=== PATIENT | male | born 1960 | race Caucasian/White ===

== ENCOUNTER → 2016-05-05 | Outpatient (CLI) | payer OTHER ==
[2016-05-05 11:36] LABS: ESTIMATED AVERAGE GLUCOSE 143 mg/dl; HA1C FLAG Normal (Normal)
[2016-05-05 11:37] LABS: CHOLESTEROL/HDL RATIO 3.3; THYROID STIMULATING HORMONE 1.32 uIu/ml (0.300-4.500)
== END | disposition home or self-care (01) ==
LOC: C.LABBC 07:48
PROVIDERS: ATTEND Family Medicine
DX: E11.9 Type 2 diabetes mellitus without complications (principal); R74.0 Nonspecific elevation of levels of transaminase and lactic acid dehydrogenase [LDH]; E78.5 Hyperlipidemia, unspecified; Z11.59 Encounter for screening for other viral diseases

== ENCOUNTER → 2016-09-10 | Outpatient (CLI) | payer OTHER ==
[2016-09-10 17:04] LABS: ALT/SGPT 35 U/L (12-78); BLOOD UREA NITROGEN 15 mg/dl (7-18); BUN/CREATININE RATIO 12.6 (10-20); CALCIUM 9.2 mg/dl (8.5-10.1); CARBON DIOXIDE 26 mmol/L (21-32); CHLORIDE 103 mmol/L (98-107); GLUCOSE 142 mg/dl (70-99); SODIUM 138 mmol/L (136-145)
[2016-09-10 17:07] LABS: ALB/GLOB RATIO 1.1 (0.9-2); ALKALINE PHOSPHATASE 49 U/L (45-117); AST/SGOT 28 U/L (15-37)
[2016-09-11 06:28] LABS: ESTIMATED AVERAGE GLUCOSE 131 mg/dl; HA1C FLAG Normal (Normal)
== END | disposition home or self-care (01) ==
LOC: C.LABBC 15:16
PROVIDERS: ATTEND Internal Medicine
DX: E78.5 Hyperlipidemia, unspecified (principal); E11.9 Type 2 diabetes mellitus without complications; E55.9 Vitamin D deficiency, unspecified

== ENCOUNTER → 2017-03-27 | Outpatient (CLI) | payer OTHER ==
[2017-03-27 11:17] LABS: BASO % 0.4 %; BASO ABS # 0.02 K/uL (0-0.2); EOS % 1.6 %; EOS ABS # 0.09 K/uL (0-0.5); HEMOGLOBIN 14.8 g/dL (14.0-18.0); IG# 0.03 K/uL (0.00-0.02); LYMPH % 27.2 %; LYMPH ABS # 1.52 K/uL (1.2-3.4); MEAN CELL VOLUME 83.8 fL (80-100); MEAN CORPUSCULAR HEMOGLOBIN 29.5 pg (25-34); MEAN CORPUSCULAR HGB CONC 35.2 g/dl (32-36); MEAN PLATELET VOLUME 10.2 fL (7.4-10.4); MONO % 5.9 %; MONO ABS # 0.33 K/uL (0.11-0.59); NEUT % 64.4 %; NEUT ABS # 3.59 K/uL (1.4-6.5); PLATELET COUNT 159 K/uL (130-400); RED CELL DISTRIBUTION WIDTH SD 38.7 fL (36.4-46.3); WHITE BLOOD COUNT 5.58 K/uL (4.8-10.8)
[2017-03-27 11:43] LABS: ALBUMIN 3.9 gm/dl (3.4-5.0); ALT/SGPT 38 U/L (12-78); BLOOD UREA NITROGEN 17 mg/dl (7-18); CALCIUM 9.1 mg/dl (8.5-10.1); CARBON DIOXIDE 26 mmol/L (21-32); CHOLESTEROL 130 mg/dl (0-200); CREATININE 0.85 mg/dl (0.60-1.40); GLUCOSE 133 mg/dl (70-99); LDL CHOLESTEROL CALCULATED 70 mg/dl; SODIUM 136 mmol/L (136-145)
[2017-03-27 11:53] LABS: ALKALINE PHOSPHATASE 44 U/L (45-117); AST/SGOT 36 U/L (15-37); TOTAL PROTEIN 7.6 gm/dl (6.4-8.2)
[2017-03-27 12:53] LABS: HEMOGLOBIN A1C 6.4 % (4.5-5.6)
== END | disposition home or self-care (01) ==
LOC: C.LABBC 07:35
PROVIDERS: ATTEND Internal Medicine
DX: K21.9 Gastro-esophageal reflux disease without esophagitis (principal); E78.5 Hyperlipidemia, unspecified; E55.9 Vitamin D deficiency, unspecified; E11.9 Type 2 diabetes mellitus without complications; R74.0 Nonspecific elevation of levels of transaminase and lactic acid dehydrogenase [LDH]; R53.83 Other fatigue

== ENCOUNTER → 2017-09-23 | Outpatient (CLI) | payer OTHER ==
[2017-09-23 10:33] LABS: BASO % 0.3 %; BASO ABS # 0.02 K/uL (0-0.2); EOS % 1.8 %; EOS ABS # 0.12 K/uL (0-0.5); HEMATOCRIT 42.5 % (42-52); HEMOGLOBIN 14.6 g/dL (14.0-18.0); IG# 0.05 K/uL (0.00-0.02); LYMPH % 26.1 %; LYMPH ABS # 1.74 K/uL (1.2-3.4); MEAN CELL VOLUME 83.3 fL (80-100); MEAN CORPUSCULAR HEMOGLOBIN 28.6 pg (25-34); MEAN CORPUSCULAR HGB CONC 34.4 g/dl (32-36); MEAN PLATELET VOLUME 10.5 fL (7.4-10.4); MONO ABS # 0.47 K/uL (0.11-0.59); NEUT % 64.1 %; NEUT ABS # 4.27 K/uL (1.4-6.5); PLATELET COUNT 164 K/uL (130-400); RED CELL DISTRIBUTION WIDTH CV 13.1 % (11.5-14.5); RED CELL DISTRIBUTION WIDTH SD 39.5 fL (36.4-46.3); WHITE BLOOD COUNT 6.67 K/uL (4.8-10.8)
[2017-09-23 10:55] LABS: ALBUMIN 3.9 gm/dl (3.4-5.0); ALKALINE PHOSPHATASE 46 U/L (45-117); ALT/SGPT 41 U/L (12-78); AST/SGOT 30 U/L (15-37); BLOOD UREA NITROGEN 14 mg/dl (7-18); CALCIUM 8.5 mg/dl (8.5-10.1); CARBON DIOXIDE 25 mmol/L (21-32); CHOLESTEROL 132 mg/dl (0-200); CREATININE 1.02 mg/dl (0.60-1.40); GLUCOSE 139 mg/dl (70-99); HEMOGLOBIN A1C 6.9 % (4.5-5.6); LDL CHOLESTEROL CALCULATED 68 mg/dl; POTASSIUM 4.2 mmol/L (3.5-5.1); SODIUM 138 mmol/L (136-145); TOTAL PROTEIN 7.8 gm/dl (6.4-8.2)
== END | disposition home or self-care (01) ==
LOC: C.LABBC 07:48
PROVIDERS: ATTEND Internal Medicine
DX: K21.9 Gastro-esophageal reflux disease without esophagitis (principal); E55.9 Vitamin D deficiency, unspecified; E11.9 Type 2 diabetes mellitus without complications; Z68.35 Body mass index [BMI] 35.0-35.9, adult; E78.5 Hyperlipidemia, unspecified

== ENCOUNTER 2023-06-27 11:36 | Observation (INO) ==
[2023-06-27 12:31] LABS: Basophils # (auto) 0.02 K/uL (0.00-0.20); Basophils % (auto) 0.5 %; Hematocrit (blood only) 38.8 % (42.0-52.0); Hemoglobin 13.5 g/dl (14.0-18.0); Immature Granulocytes # (auto) 0.04 K/uL (0.01-0.20); Lymphocytes # (auto) 0.89 K/uL (1.20-3.40); Lymphocytes % (auto) 21.3 %; Mean Corpuscular Hemoglobin 28.2 pg (25.0-34.0); Mean Corpuscular Hgb Conc 34.8 g/dL (32.0-36.0); Mean Platelet Volume 10.3 fL (9.4-12.4); Monocytes # (auto) 0.57 K/uL (0.11-0.59); Monocytes % (auto) 13.6 %; Neutrophils # (auto) 2.66 K/uL (1.40-6.50); Neutrophils % (auto) 63.6 %; Platelet Count 161 K/uL (130-400); RDW Coefficient of Variation 12.3 % (11.5-14.5); RDW Standard Deviation 35.7 fL (36.4-46.3); Red Blood Count 4.79 M/uL (4.70-6.10); White Blood Count 4.18 K/ul (4.8-10.8)
[2023-06-27 12:43] LABS: INR 1.1 (0.9-1.1); Partial Thromboplastin Time 27 Seconds (21-31); Prothrombin Time 12.4 Seconds (9.0-12.0)
[2023-06-27 12:56] LABS: Albumin Globulin Ratio 1.5 (0.9-2); Albumin Level 4.2 gm/dl (3.4-5.0); BUN Creatinine Ratio 16.8 (10-20); Calcium 9.2 mg/dl (8.6-10.3); Est GFR (Non-African American) 77.7 ml/min; Globulin 2.8 gm/dl (2.5-4.0); Magnesium 1.2 mg/dl (1.7-2.4); Troponin I High Sensitivity 16.6 pg/ml (0-20)
[2023-06-27 13:02] LABS: Potassium 3.9 mmol/L (3.5-5.1)
--- NOTE | 2023-06-27 13:02 | CT Scan Report ---
MAXILLOFACIAL CT WITHOUT CONTRAST CLINICAL HISTORY: Fall, face/head injuries COMPARISON STUDY: None. TECHNIQUE: A maxillofacial CT was performed without IV contrast. Coronal and sagittal reformats were viewed. Automated exposure control was utilized for the study. A dose lowering technique was utiliz ed adhering to the principles of ALARA. FINDINGS: There are probable acute nondisplaced bilateral nasal bone fractures. There is nasal soft t issue swelling. Globes are intact. There is no retrobulbar hematoma. No additional facial fractures a re present. Alignment of the temporomandibular joints is anatomic. There is no fracture within the sk ull base or visualized upper cervical spine IMPRESSION: Probable acute nondisplaced bilateral nasal bone fractures. No additional facial fracture s. ACT 112: Negative or not required by law. Electronically signed by: Vu Ruiz M.D. 06/27/2023 1:01 PM
[2023-06-27 13:13] LABS: Influenza A virus by PCR Negative (Neg); Influenza B virus by PCR Negative (Neg); RSV by PCR Negative (Neg); SARS CoV2 RNA(COVID-19) Ceph POSITIVE (Negative)
--- NOTE | 2023-06-27 13:17 | CT Scan Report ---
HEAD CT NONCONTRAST CT DOSE: 841.82 mGy.cm HISTORY: Fall, face/head injuries TECHNIQUE: Multiaxial CT images of the head were performed without the use of intravenous contrast. A utomated exposure control was utilized for this study. A dose lowering technique was utilized adheri ng to the principles of ALARA. Comparison: None. Findings: The paranasal sinuses and mastoid air cells are clear. The calvarium and skull base are int act. The ventricles and sulci are within normal limits. There is no mass, hematoma, midline shift, or acute infarct. Impression: No acute intracranial abnormality. ACT 112: Negative or not required by law. Electronically signed by: Tha Paz M.D. 06/27/2023 1:14 PM
--- NOTE | 2023-06-27 14:03 | XRay Report ---
XR chest 1V not portable HISTORY: 63 years-old Male Sepsis acute sepsis COMPARISON: None TECHNIQUE: PA view of the chest FINDINGS: Cardiomediastinal and hilar silhouettes are within normal limits. No pneumothorax, pleural effusion o r airspace consolidation. The bones appear grossly intact. Likely benign indeterminate 1.4 cm sclerot ic focus projects over the right glenohumeral joint. IMPRESSION: No acute process. ACT 112: Negative or not required by law. The above report was generated using voice recognition software. It may contain grammatical, syntax o r spelling errors. Electronically signed by: Varun Alvarez M.D. 06/27/2023 2:02 PM
[2023-06-27] MEDS: SODIUM CHLORIDE 0.9% 1,000 ML IV SCH (15:11)
--- NOTE | 2023-06-27 15:49 | CT Scan Report ---
CT OF THE CERVICAL SPINE WITHOUT CONTRAST CLINICAL HISTORY: Fall. COMPARISON STUDY: No previous studies for comparison. TECHNIQUE: Helical axial images of the cervical spine were obtained without IV contrast. Sagittal a nd coronal reconstructions were viewed. Automated exposure control was utilized for the study. A do se lowering technique was utilized adhering to the principles of ALARA. FINDINGS: There is straightening of the cervical lordosis. Vertebral body heights are maintained. No acute cervical spine fracture or subluxation is present. There is no prevertebral edema. Facet joints are intact. Moderate disc space narrowing and osteophytosis at C5-C6 is present. There is mild mult ilevel facet arthrosis. IMPRESSION: No acute cervical spine fracture or subluxation. ACT 112: Negative or not required by law. Electronically signed by: Vu Ruiz M.D. 06/27/2023 3:47 PM
[2023-06-27] MEDS: MAGNESIUM SULFATE / D5W 1 GM/100 ML BAG IV SCH ×2 (15:51→21:00)
[2023-06-27] MEDS: DIPHTHER/TETAN/PERTUS Vaccine (Tdap, Adol/Adult) 0.5mL IM ONE (15:51)
--- NOTE | 2023-06-27 15:59 | Electrocardiogram Report ---
Test Reason : Blood Pressure : / mmHG Vent. Rate : 102 BPM Atrial Rate : 102 BPM P-R Int : 152 ms QRS Dur : 086 ms QT Int : 318 ms P-R-T Axes : 061 110 -15 degrees QTc Int : 414 ms Suspect arm lead reversal, interpretation assumes no reversal Sinus tachycardia Left posterior fascicular block Abnormal ECG When compared with ECG of 31-MAR-2001 18:17, Left posterior fascicular block is now Present T wave inversion now evident in Inferior leads T wave inversion now evident in Lateral leads Confirmed by Severo Mcdaniel ([id number]) on 06/27/2023 3:59:06 PM Referred By: Confirmed By:Severo Mcdaniel
--- NOTE | 2023-06-27 17:19 | History & Physical Report ---
Date of Service June 27, 2023 Assessment & Plan (1) COVID: Plan: Patient developed a fever/chills evening 06/25, then woke up feeling lightheaded on 06/26 COVID-positive on ED arrival Mildly leukopenic at 4.18 Febrile at 39.5 C in the ED; non-hypoxic Isolation precautions Remdesivir x 5 days Acetaminophen as needed for pain/fever A.m. CBC, BMP, mag (2) Fall: Plan: Patient was running across the street on 06/26 and fell forward, striking his face He is unsure what caused his fall, but denies tripping; he reports he was feeling lightheaded due to his illness, and may have mixed up his antipsychotic medications the night prior Not on blood thinners Face CT revealed a probable acute nondisplaced bilateral nasal bone fracture Head/cervical spine CTs revealed no acute fractures or subluxation Fall precautions PT/OT consulted (3) Hypomagnesemia: Plan: Hypomagnesemia 1.2 on arrival Magnesium sulfate 1 g IV x 4 Follow a.m. mag (4) Type 2 diabetes mellitus: Plan: Last A1c at 6.1% on 05/29/2023 Patient recently got off insulin and May 2023 Glucose 153 on admission Hold metformin for now Lantus 8u QAM while inpatient; per review of diabetes visits, he has been on this in the past SSI; with target BSG range 110-140mg/dL, CF 50, carb ratio 15 T2DM diet BSG ACHS Adjust regimen as needed (5) Elevated troponin: Plan: Elevated troponin 16-->31 on arrival Trend q6h x 2 Clinically, patient denies chest pain, pleuritic CP, or SOB First EKG taken with suspected arm lead reversal; repeat EKG pending Continuous telemetry monitoring Plan Disposition: Obs -admit to [facility] telemetry Full code T2DM diet VTE PPx: Lovenox 40 mg SQ q24h History of Present Illness Chief Complaint: Fall Primary Care Provider: DO Ruddy King is a 63-year-old male with PMH of T2DM, schizophrenia, and acid reflux. He presented for lightheadedness and fall on 06/26. Patient reports he developed fever and chills yesterday when walking home, and then felt lightheaded and "woozy" when he woke up this morning. He never took his temperature, so he is unsure how high the fever was. Then, when running to cross [facility], he fell and went headfirst into the pavement. He is unsure what caused the fall, but denies tripping or LOC. After falling, he quickly tried to get back up to get out of the way of a car, but fell again. During the 2 falls he struck his face. Not currently on blood thinners. Patient does note that, given his recent illness, he may have mixed up some of his medications for schizophrenia. He is unsure if he took 2 Risperdal's the evening of 06/25 vs. 1 Risperdal and 1 clonazepam. He did take clonazepam the morning of 06/26. Patient manages his own medications; and denies any recent change in medications. He was recently taken off insulin for his diabetes. No sick contacts. He has not had COVID previously. He does note he is up-to-date on his COVID shots (has had 1 vaccine and 1 booster). No recent changes in diet. He reports no new or recent symptoms related to his schizophrenia. Patient reports he walks daily, which helps with his schizophrenia. He denies any recent alcohol, tobacco use, or smoking. Patient is febrile at 39.5 C at time of admission; SpO2 95% on RA. ED course: NSS 1000 mL IV Magnesium sulfate 1 g IV DTaP ROS: Patient endorses fever, chills, lightheadedness, and dry cough (that started today). Patient denies night-sweats, body aches, dizziness, changes of vision, chest pain, chest palpitations, SOB, pleuritic CP, abdominal pain, N/V/D, change in urinary/bowel habits, or numbness/tingling in arms or legs. Allergies Allergy/AdvReac Type Severity Reaction Status Date / Time Neosporin OINT Allergy Mild Rash Uncoded 06/13/23 10:52 Home Medications Medication Instructions Recorded Confirmed Type cholecalciferol (vitamin D3) 50 2,000 units PO DAILY #90 caps 09/25/18 06/27/23 History mcg (2,000 unit) capsule cyanocobalamin (vitamin B-12) 500 500 mcg PO DAILY #90 tabs 09/25/18 06/27/23 History mcg tablet blood-glucose meter (OneTouch #1 ea 02/11/20 06/13/23 Rx Verio Flex Start kit) OneTouch Delica Plus Lancet 30 #300 ea 02/04/23 06/13/23 Rx gauge (lancets) insulin syringe-needle U-100 1/2 #200 ea 02/04/23 06/13/23 Rx mL 31 gauge x 15/64" (BD Veo Insulin Syringe Ultra-Fine) metformin 500 mg tablet 1,000 mg (2 x 500 mg) PO BID 90 02/04/23 06/27/23 Rx days #360 tabs diphth,pertus(acell),tetanus 2.5 0.5 ml IM ONCE #0.5 mL 02/26/23 06/27/23 Rx Lf unit-8 mcg-5 Lf/0.5mL IM syringe (Boostrix Tdap) omeprazole 20 mg capsule,delayed 20 mg PO DAILY #90 caps 04/12/23 06/27/23 Rx release blood sugar diagnostic (OneTouch #200 ea 05/01/23 06/13/23 Rx Verio test strips) insulin NPH isoph U-100 human 100 0 unit subcut UD 05/03/23 06/27/23 History unit/mL subcutaneous suspension (Novolin N NPH U-100 Insulin isophane) insulin lispro protamine-lispro 0 unit subcut UD 05/03/23 06/27/23 History 100 unit/mL (75-25) subcutaneous susp (Humalog Mix 75-25(U-100)Insuln) benztropine 0.5 mg tablet 0.5 mg PO BID #180 tabs 05/16/23 06/27/23 Rx risperidone 3 mg tablet 3 mg PO BID #180 tabs 05/16/23 06/27/23 Rx clonazepam 0.5 mg tablet 0.5 mg PO BID #60 tabs 06/12/23 06/27/23 Rx aripiprazole 15 mg tablet 15 mg PO HS 06/27/23 06/27/23 History Past Med/Surg History Medical History (Updated 06/27/23 @ 21:40 by Tha Martin PA-C) Type 2 diabetes mellitus COVID BMI 36.0-36.9,adult Diabetes mellitus type 2 in obese Schizophrenia Surgical History History of tooth extraction Family History Father Dementia Myocardial infarction Grandfather (Paternal) Diabetes Mother Myocardial infarction Denies family history of Ovarian cancer Prostate cancer Breast cancer Lung cancer Colorectal cancer Stroke Social History (Updated 02/26/23 @ 10:31 by Shanique Laws LPN) Smoking Status: Never smoker Second Hand Exposure: No; Do You Dip or Chew Tobacco: No; Hx Alcohol Use: No Hx Substance Use: No Preferred Language: Icelandic Visual Impairment: Limited Hearing Ability: Normal marital status: Single Current Living Situation: Family current occupational status: disabled How many Children do You have: 0 Feels Safe at Home: Yes Childhood Exposure to Second-Hand Smoke: No Diet: regular caffeine: No during the past year weight has: remained stable Dental Care, Regularly: Yes Physical Activity Frequency: Daily Physical Activity Frequency Comment: walks 2 hours daily Seatbelt Use: always Sunscreen Use: No Assistive Devices: Glasses Review of Systems Review of Systems: See HPI above Physical Exam Physical Exam: General: no acute distress; pleasant affect; non-toxic appearing; well- nourished; cooperative; SpO2 95% on RA HEENT: Erythema and swelling over the bridge of the nose and right cheek with superficial abrasions; nares are with dried blood, but patent; no scleral icterus; PERRLA w/ EOMs intact; moist mucus membrane; vision and hearing grossly intact Neck: supple; no lymphadenopathy; trachea midline Skin: warm, dry without signs of tenting; no cyanosis; no rashes, bruising, lesions, or erythema noted CV: chest wall NTP; RRR; S1/S2 normal; no murmurs/rubs/gallops; pulses intact and symmetric at radial, DP, and PT Lungs: no acute respiratory distress; symmetrical chest wall expansion; clear breath sounds across all lung hernández w/o adventitious sounds; no wheezing ABD: Soft, NTP; BS present; no rebound/guarding; no distention MSK: no tics or fasciculations; no edema noted in the LEs b/l, nonerythematous Neuro: A&Ox3; normal mood and affect; perseveration; repetition of thoughts and ideas; fluent speech; no focal deficits; sensation grossly intact in the LEs b/l Results & Data Results & Data Vital Signs (Past 12 Hours) Vital Signs Temp Pulse Pulse Resp BP BP Pulse Ox 06/27/23 16:30 76 18 95 06/27/23 16:30 142/98 H 06/27/23 16:00 79 18 93 06/27/23 16:00 140/87 06/27/23 15:38 134/82 06/27/23 15:38 79 18 92 06/27/23 15:37 79 20 06/27/23 15:24 79 06/27/23 15:00 140/78 06/27/23 15:00 78 20 94 06/27/23 14:30 83 18 132/78 94 06/27/23 11:52 38.4 C H 108 H 18 116/81 94 O2 Del Method 06/27/23 16:30 06/27/23 16:30 06/27/23 16:00 06/27/23 16:00 06/27/23 15:38 06/27/23 15:38 06/27/23 15:37 06/27/23 15:24 06/27/23 15:00 06/27/23 15:00 06/27/23 14:30 Room Air 06/27/23 11:52 Room Air Laboratory Results Abnormal lab results 06/27/23 Range/Units 12:10 WBC 4.18 L (4.8-10.8) K/ul Hgb 13.5 L (14.0-18.0) g/dl Hct 38.8 L (42.0-52.0) % RDW Std Deviation 35.7 L (36.4-46.3) fL Lymph # (Auto) 0.89 L (1.20-3.40) K/uL PT 12.4 H (9.0-12.0) Seconds Glucose 153 H (70-99(Fasting)) mg/dl Lactate 2.5 H* (0.4-2.0) mmol/L Magnesium 1.2 L (1.7-2.4) mg/dl Alkaline Phosphatase 31 L (34-104) U/L Diagnostic Findings Chest X-Ray 06/27/23 12:00 XR chest 1V not portable HISTORY: 63 years-old Male Sepsis acute sepsis COMPARISON: None TECHNIQUE: PA view of the chest FINDINGS: Cardiomediastinal and hilar silhouettes are within normal limits. No pneumotho rax, pleural effusion or airspace consolidation. The bones appear grossly intact. Likely benign indeterminate 1.4 cm sclerotic focus projects over the right glenohumeral joint. IMPRESSION: No acute process. ACT 112: Negative or not required by law. The above report was generated using voice recognition software. It may contain grammatical, syntax or spelling errors. Electronically signed by: Varun Alvarez M.D. 06/27/2023 2:[address] 06/27/23 12:[address] WITHOUT CONTRAST CLINICAL HISTORY: Fall, face/head injuries COMPARISON STUDY: None. TECHNIQUE: A maxillofacial CT was performed without IV contrast. Coronal and sagittal reformats were viewed. Automated exposure control was utilized for the study. A dose lowering technique was utilized adhering to the principles of ALARA. FINDINGS: There are probable acute nondisplaced bilateral nasal bone fractures. There is nasal soft tissue swelling. Globes are intact. There is no retrobulbar hematoma. No additional facial fractures are present. Alignment of the temporomandibular joints is anatomic. There is no fracture within the skull base or visualized upper cervical spine IMPRESSION: Probable acute nondisplaced bilateral nasal bone fractures. No additional facial fractures. ACT 112: Negative or not required by law. Electronically signed by: Vu Ruiz M.D. 06/27/2023 1:[address] 06/27/23 12:[address] DOSE: 841.82 mGy.cm HISTORY: Fall, face/head injuries TECHNIQUE: Multiaxial CT images of the head were performed without the use of intravenous contrast. Automated exposure control was utilized for this study. A dose lowering technique was utilized adhering to the principles of ALARA. Comparison: None. Findings: The paranasal sinuses and mastoid air cells are clear. The calvarium and skull base are intact. The ventricles and sulci are within normal limits. There is no mass, hematoma, midline shift, or acute infarct. Impression: No acute intracranial abnormality. ACT 112: Negative or not required by law. Electronically signed by: Tha Paz M.D. 06/27/2023 1:[address] 06/27/23 14:49 CT OF THE CERVICAL SPINE WITHOUT CONTRAST CLINICAL HISTORY: Fall. COMPARISON STUDY: No previous studies for comparison. TECHNIQUE: Helical axial images of the cervical spine were obtained without IV contrast. Sagittal and coronal reconstructions were viewed. Automated exposure control was utilized for the study. A dose lowering technique was utilized adhering to the principles of ALARA. FINDINGS: There is straightening of the cervical lordosis. Vertebral body heights are maintained. No acute cervical spine fracture or subluxation is present. There is no prevertebral edema. Facet joints are intact. Moderate disc space narrowing and osteophytosis at C5-C6 is present. There is mild multilevel facet arthrosis. IMPRESSION: No acute cervical spine fracture or subluxation. ACT 112: Negative or not required by law. Electronically signed by: Vu Ruiz M.D. 06/27/2023 3:47 PM ECG Additional Comments: ECG revealed sinus tachycardia at 102 bpm; QTc 414; left posterior fascicular block now present when compared to EKG from 2001 Repeat EKG ordered Code Status & VTE Plan Code Status Full code (per discussion with patient and patient's sister/POA, Vi, who is at the bedside) VTE Prophylaxis Plan VTE Prophylaxis will be ordered: Yes Supervising Physician Co-Signing Physician Notes Patient seen and examined, chart reviewed, case discussed with Tha Martin and I agree with the assessment and plan as above except as otherwise noted Labs and images reviewed 63-year-old male COVID-positive who was running when he fell but does not feel that he tripped and does report that he felt lightheaded/dizzy and possibly mixed of his medications the night before, and then subsequent also felt lightheaded and dizzy was recommended for 2 episodes of syncope/presyncope and observation. He notes his fall he just fell forward, but did not trip just had a weird feeling and then fell. He notes he felt more weak than he normally would and when he went to stand up and keep going after he fell he again felt weak and fell to the ground. Afterwards was able to walk and did not notice any focal weakness. No numbness/tingling. No dysarthria or aphasia. At bedside he feels improved. He does not require oxygen. Will observe overnight for arrhythmia given his falls not clearly mechanical and patient thinks he may have mixups medications, no metabolic acidosis or derangements noted but will continu e to observe and will likely discharge in the morning. Overall suspect that he was globally weak and slightly volume contracted with COVID. Agree with above. Lungs are clear at bedside PG Care Time/CCT Total # of Minutes Spent Total Time Spent with Patient: Total time spent is greater than 50% in coordination of care (as documented) at patient's floor/unit and/or counseling patient: [place] [address] INT INP/OBS CARE 3/75MIN Patient Type New History Comprehensive Exam Comprehensive Medical Decision Making High Complexity Diagnoses COVID U07.1 Fall W19.XXXA Hypomagnesemia E83.42 Type 2 diabetes mellitus E11.9 Elevated troponin R79.89
[2023-06-27] MEDS: ACETAMINOPHEN 500 MG TAB PO STA (17:24)
[2023-06-27] MEDS ORDERED: CARBOHYDRATES FOR HYPOGLYCEMIA PO PRN (18:35)
[2023-06-27] MEDS ORDERED: ONDANSETRON INJ 2 MG/ML 2 ML VIAL IV PRN (18:35)
[2023-06-27] MEDS ORDERED: GLUCAGON FOR INJ 1 MG VIAL SQ PRN (18:35)
[2023-06-27] MEDS ORDERED: GLUCOSE 10 TAB/TUBE PO PRN (18:35)
[2023-06-27] MEDS ORDERED: GLUCOSE 40% GEL 15 GM TUBE PO PRN (18:35)
[2023-06-27] MEDS ORDERED: DEXTROSE 50% 50 ML SYRINGE IV PRN (18:35)
[2023-06-27 18:52] LABS: Appearance Urine Clear (Clear); Bilirubin Urine Negative (Negative); Blood Urine Negative (Negative); Color Urine Yellow; Glucose Urine UA Negative (Negative); Ketones Urine Negative (Negative); Leukocyte Esterase Urine Negative (Negative); Nitrite Urine Negative (Negative); Protein Urine Negative (Negative); Specific Gravity Urine 1.025 (1.000-1.030); Urobilinogen Urine Negative (Negative); pH Urine 5.5 (4.5-7.5)
[2023-06-27] MEDS: REMDESIVIR 200 MG in SODIUM CHLORIDE 0.9% 210 ML IV ONE (18:53)
--- NOTE | 2023-06-27 20:01 | Emergency Department Note ---
History of Present Illness General Chief complaint: Fall Stated complaint: FALL,FACIAL LAC,LAC ON ARMS/HANDS Time Seen by Provider: 06/27/23 14:24 History of Present Illness Provider complaint: Fall Onset (ago): day(s) 1 63-year-old male presents emergency department for fall. Patient reports he was crossing the street today and then fell. He states he tried to get up because he saw a car, and then fell again. Patient states he landed and hit his face and nose. He is reporting nose pain. Patient states this occurred at 11:30 AM. Patient states he actually took his medications in the wrong order stating that he took 2 risperidone last night instead of 1 risperidone and 1 clonazepam. Home Medications Medication Instructions Recorded Confirmed Type cholecalciferol (vitamin D3) 50 2,000 units PO DAILY #90 caps 09/25/18 06/27/23 History mcg (2,000 unit) capsule cyanocobalamin (vitamin B-12) 500 500 mcg PO DAILY #90 tabs 09/25/18 06/27/23 History mcg tablet blood-glucose meter (OneTouch #1 ea 02/11/20 06/13/23 Rx Verio Flex Start kit) OneTouch Delica Plus Lancet 30 #300 ea 02/04/23 06/13/23 Rx gauge (lancets) insulin syringe-needle U-100 1/2 #200 ea 02/04/23 06/13/23 Rx mL 31 gauge x 15/64" (BD Veo Insulin Syringe Ultra-Fine) metformin 500 mg tablet 1,000 mg (2 x 500 mg) PO BID 90 02/04/23 06/27/23 Rx days #360 tabs diphth,pertus(acell),tetanus 2.5 0.5 ml IM ONCE #0.5 mL 02/26/23 06/27/23 Rx Lf unit-8 mcg-5 Lf/0.5mL IM syringe (Boostrix Tdap) omeprazole 20 mg capsule,delayed 20 mg PO DAILY #90 caps 04/12/23 06/27/23 Rx release blood sugar diagnostic (OneTouch #200 ea 05/01/23 06/13/23 Rx Verio test strips) insulin NPH isoph U-100 human 100 0 unit subcut UD 05/03/23 06/27/23 History unit/mL subcutaneous suspension (Novolin N NPH U-100 Insulin isophane) insulin lispro protamine-lispro 0 unit subcut UD 05/03/23 06/27/23 History 100 unit/mL (75-25) subcutaneous susp (Humalog Mix 75-25(U-100)Insuln) benztropine 0.5 mg tablet 0.5 mg PO BID #180 tabs 05/16/23 06/27/23 Rx risperidone 3 mg tablet 3 mg PO BID #180 tabs 05/16/23 06/27/23 Rx clonazepam 0.5 mg tablet 0.5 mg PO BID #60 tabs 06/12/23 06/27/23 Rx aripiprazole 15 mg tablet 15 mg PO HS 06/27/23 06/27/23 History Allergies Allergy/AdvReac Type Severity Reaction Status Date / Time Neosporin OINT Allergy Mild Rash Uncoded 06/13/23 10:52 Past Med/Surg History Medical History (Updated 06/27/23 @ 20:07 by Reji Vallejo MD) Type 2 diabetes mellitus COVID BMI 36.0-36.9,adult Diabetes mellitus type 2 in obese Schizophrenia Surgical History History of tooth extraction Family History Father Dementia Myocardial infarction Grandfather (Paternal) Diabetes Mother Myocardial infarction Denies family history of Ovarian cancer Prostate cancer Breast cancer Lung cancer Colorectal cancer Stroke Social History (Updated 02/26/23 @ 10:31 by Shanique Laws LPN) Smoking Status: Never smoker Second Hand Exposure: No; Do You Dip or Chew Tobacco: No; Hx Alcohol Use: No Hx Substance Use: No Preferred Language: Irish Visual Impairment: Limited Hearing Ability: Normal marital status: Single Current Living Situation: Family current occupational status: disabled How many Children do You have: 0 Feels Safe at Home: Yes Childhood Exposure to Second-Hand Smoke: No Diet: regular caffeine: No during the past year weight has: remained stable Dental Care, Regularly: Yes Physical Activity Frequency: Daily Physical Activity Frequency Comment: walks 2 hours daily Seatbelt Use: always Sunscreen Use: No Assistive Devices: Glasses Physical Exam Vital Signs Vital Signs - 24 hr 06/27/23 11:52 06/27/23 14:30 06/27/23 15:00 Temperature 38.4 C H Temperature Source Oral Pulse Rate 108 H 78 Pulse Rate [Left Apical] 83 Pulse Rate from SpO2 Sensor 78 Pulse Rhythm Regular Pulse Strength Normal Respiratory Rate 18 18 20 Respiratory Effort / Characteristics Non-Labored Spontaneous Non-Labored Spontaneous Respiratory Depth Normal Normal Respiratory Pattern Regular Blood Pressure 116/81 Blood Pressure [Right Arm] 132/78 Blood Pressure Mean 92 Blood Pressure Mean [Right Arm] 96 Blood Pressure Position Sitting Blood Pressure Position [Right Arm] Lying Pulse Oximetry 94 94 94 Oxygen Delivery Method Room Air Room Air Sepsis Recent Fever Within 48 Hours Yes Sepsis New/Unexplained Change in Mental Status No Sepsis Action Taken by Nursing No Action Required 06/27/23 15:00 06/27/23 15:24 06/27/23 15:37 Temperature Temperature Source Pulse Rate 79 79 Pulse Rate [Left Apical] Pulse Rate from SpO2 Sensor Pulse Rhythm Pulse Strength Respiratory Rate 20 Respiratory Effort / Characteristics Respiratory Depth Respiratory Pattern Blood Pressure 140/78 Blood Pressure [Right Arm] Blood Pressure Mean 107 Blood Pressure Mean [Right Arm] Blood Pressure Position Blood Pressure Position [Right Arm] Pulse Oximetry Oxygen Delivery Method Sepsis Recent Fever Within 48 Hours Sepsis New/Unexplained Change in Mental Status Sepsis Action Taken by Nursing 06/27/23 15:38 06/27/23 15:38 06/27/23 16:00 Temperature Temperature Source Pulse Rate 79 Pulse Rate [Left Apical] Pulse Rate from SpO2 Sensor 81 Pulse Rhythm Pulse Strength Respiratory Rate 18 Respiratory Effort / Characteristics Respiratory Depth Respiratory Pattern Blood Pressure 134/82 140/87 Blood Pressure [Right Arm] Blood Pressure Mean 88 94 Blood Pressure Mean [Right Arm] Blood Pressure Position Blood Pressure Position [Right Arm] Pulse Oximetry 92 Oxygen Delivery Method Sepsis Recent Fever Within 48 Hours Sepsis New/Unexplained Change in Mental Status Sepsis Action Taken by Nursing 06/27/23 16:00 06/27/23 16:30 06/27/23 16:30 Temperature Temperature Source Pulse Rate 79 76 Pulse Rate [Left Apical] Pulse Rate from SpO2 Sensor 80 74 Pulse Rhythm Pulse Strength Respiratory Rate 18 18 Respiratory Effort / Characteristics Respiratory Depth Respiratory Pattern Blood Pressure 142/98 H Blood Pressure [Right Arm] Blood Pressure Mean 109 Blood Pressure Mean [Right Arm] Blood Pressure Position Blood Pressure Position [Right Arm] Pulse Oximetry 93 95 Oxygen Delivery Method Sepsis Recent Fever Within 48 Hours Sepsis New/Unexplained Change in Mental Status Sepsis Action Taken by Nursing 06/27/23 17:00 06/27/23 17:00 06/27/23 17:10 Temperature 39.5 C H Temperature Source Oral Pulse Rate 75 Pulse Rate [Left Apical] Pulse Rate from SpO2 Sensor 77 Pulse Rhythm Pulse Strength Respiratory Rate 22 Respiratory Effort / Characteristics Respiratory Depth Respiratory Pattern Blood Pressure 151/97 H Blood Pressure [Right Arm] Blood Pressure Mean 111 Blood Pressure Mean [Right Arm] Blood Pressure Position Blood Pressure Position [Right Arm] Pulse Oximetry 99 Oxygen Delivery Method Sepsis Recent Fever Within 48 Hours Sepsis New/Unexplained Change in Mental Status Sepsis Action Taken by Nursing 06/27/23 17:30 06/27/23 17:30 Temperature Temperature Source Pulse Rate 87 Pulse Rate [Left Apical] Pulse Rate from SpO2 Sensor 86 Pulse Rhythm Pulse Strength Respiratory Rate 20 Respiratory Effort / Characteristics Respiratory Depth Respiratory Pattern Blood Pressure 130/91 Blood Pressure [Right Arm] Blood Pressure Mean 97 Blood Pressure Mean [Right Arm] Blood Pressure Position Blood Pressure Position [Right Arm] Pulse Oximetry 94 Oxygen Delivery Method Sepsis Recent Fever Within 48 Hours Sepsis New/Unexplained Change in Mental Status Sepsis Action Taken by Nursing Physical Exam HENT: Exam performed. - Head: Abrasions over the patient's face. - Mouth/Throat: The oropharynx is clear and moist. No trismus in the jaw. No dental abscesses or uvula swelling. No oropharyngeal exudate or tonsillar abscesses. NECK: Normal range of motion. Neck supple. No JVD present. No spinous process tenderness present. CV: Normal rate, regular rhythm, normal heart sounds and intact distal pulses. There is no peripheral edema. Palpable radial pulses bue. PULM/CHEST: Effort normal and breath sounds normal. No respiratory distress. No stridor. He has no wheezes. He has no rales. ABD: The abdomen is soft. MUSC/SKEL: Normal range of motion. There is no peripheral edema, tenderness or deformity. Pelvis stable NEURO: He is alert and oriented to person, place, and time. He has normal strength. No cranial nerve deficit or sensory deficit. Coordination and gait normal. GCS eye subscore is 4. GCS verbal subscore is 5. GCS motor subscore is 6. Cerebellar tests wnl. Course Course 1424: The patient was evaluated in room B8. A complete history and physical exam was performed Cardiac monitoring: An order was placed for continuous cardiac monitoring. The monitor shows a rate of 100 with sinus rhythm interpreted by me 1600: Vital signs stable. Lactic acid 2.5. Magnesium 1.2. IV fluids began in the emergency department 30 cc/kg bolus. [place] that the patient's lactic acidemia secondary to his COVID infection. Procalcitonin is negative not thought to be bacterial. Antibiotics held at this time. Imaging shows nasal bone fracture otherwise negative. Magnesium was 1.2 repletion started in the emergency department. Patient be admitted for syncope hypomagnesemia and lactic acidemia. [facility]: Repeat lactic acid status post 2 L normal saline bolus 1.4. Administered Medications Remdesivir 200 mg/ Sodium (Chloride) 250 mls @ 125 mls/hr IV NOW ONE; Protocol Stop: 06/27/23 20:14 Last Admin: 06/27/23 18:53 Dose: 125 mls/hr Documented By: AMANDA Discontinued Medications Acetaminophen (Acetaminophen 500 Mg Tab) 1,000 mg PO NOW STA Stop: 06/27/23 17:19 Last Admin: 06/27/23 17:24 Dose: 1,000 mg Documented By: AMANDA Diphtheria/Pertussis/Tetanus Vacc (Diphther/Tetan/Pertus Vaccine (Tdap, Adol/Adult) 0.5ml) 0.5 ml IM .ONCE ONE Stop: 06/27/23 14:51 Last Admin: 06/27/23 15:51 Dose: 0.5 ml Documented By: AMANDA Sodium Chloride (Nss) 1,000 mls @ 999 mls/hr IV .Q1H1M [facility] Stop: 06/27/23 16:45 Last Infusion: 06/27/23 17:02 Dose: Infused Documented By: Admin: 06/27/23 15:16 Dose: 999 mls/hr Documented By: Infusion: 06/27/23 15:16 Dose: Infused Documented By: Admin: 06/27/23 15:11 Dose: 999 mls/hr Documented By: AMANDA Magnesium Sulfate/Dextrose (Magnesium Sulfate / D5w) 1 gm in 100 mls @ 100 mls/hr IV Q1H [facility] Stop: 06/27/23 16:49 Last Infusion: 06/27/23 18:19 Dose: Infused Documented By: Admin: 06/27/23 17:08 Dose: 100 mls/hr Documented By: Infusion: 04/25/24 16:51 Dose: Infused Documented By: Admin: 06/27/23 15:51 Dose: 100 mls/hr Documented By: AMANDA Medical Decision Making Laboratory Data Attestation: I reviewed the patient's lab results. 06/27/23 12:10 06/27/23 12:10 Lab Results 06/27/23 06/27/23 Range/Units 12:10 17:04 WBC 4.18 L (4.8-10.8) K/ul RBC 4.79 (4.70-6.10) M/uL Hgb 13.5 L (14.0-18.0) g/dl Hct 38.8 L (42.0-52.0) % MCV 81.0 (80.0-100.0) fL MCH 28.2 (25.0-34.0) pg MCHC 34.8 (32.0-36.0) g/dL RDW Std Deviation 35.7 L (36.4-46.3) fL RDW Coeff of Edith 12.3 (11.5-14.5) % Plt Count 161 (130-400) K/uL MPV 10.3 (9.4-12.4) fL Immature Gran % (Auto) 1.0 % Neut % (Auto) 63.6 % Lymph % (Auto) 21.3 % [place] % (Auto) 13.6 % Eos % (Auto) 0.0 % Baso % (Auto) 0.5 % Neut # (Auto) 2.66 (1.40-6.50) K/uL Lymph # (Auto) 0.89 L (1.20-3.40) K/uL [place] # (Auto) 0.57 (0.11-0.59) K/uL Eos # (Auto) 0.00 (0.00-0.50) K/uL Baso # (Auto) 0.02 (0.00-0.20) K/uL Immature Gran # (Auto) 0.04 (0.01-0.20) K/uL PT 12.4 H (9.0-12.0) Seconds INR 1.1 (0.9-1.1) APTT 27 (21-31) Seconds PTT Ratio 1.0 Sodium 137 (136-145) mmol/L Potassium 3.9 (3.5-5.1) mmol/L Chloride 103 (98-107) mmol/L Carbon Dioxide 25 (21-32) mmol/L Anion Gap 9 (3-11) BUN 17 (6-23) mg/dl Creatinine 1.01 (0.6-1.4) mg/dl Est Cr Clr Drug Dosing 68.0 ml/min Est GFR ( Amer) 90.0 ml/min Est GFR (Non-Af Amer) 77.7 ml/min BUN/Creatinine Ratio 16.8 (10-20) Glucose 153 H (70-99(Fasting)) mg/dl Lactate 2.5 H* 1.4 (0.4-2.0) mmol/L Calcium 9.2 (8.6-10.3) mg/dl Magnesium 1.2 L (1.7-2.4) mg/dl Total Bilirubin 1.0 (0.2-1.0) mg/dl AST 22 (13-39) U/L ALT 14 (7-52) U/L Alkaline Phosphatase 31 L (34-104) U/L Troponin I High Sens 16.6 (0-20) pg/ml Total Protein 7.0 (6.0-8.3) gm/dl Albumin 4.2 (3.4-5.0) gm/dl Globulin 2.8 (2.5-4.0) gm/dl Albumin/Globulin Ratio 1.5 (0.9-2) Procalcitonin < 0.02 (0-0.5) ng/ml SARS-CoV-2 (PCR) POSITIVE (Negative) Influenza Type A (PCR) Negative (Neg) Influenza Type B (PCR) Negative (Neg) RSV (RT-PCR) Negative (Neg) Imaging Data Attestation: I personally reviewed and interpreted this imaging study as follows: My Impression: Chest x-ray negative. Airway clear. No pneumothorax. No consolidation. No cardiomegaly or cephalization.. No free air under the diaphragm. No fractures of the skeletal structures. Radiologist's Impression: Chest X-Ray 06/27/23 12:00 XR chest 1V not portable HISTORY: 63 years-old Male Sepsis acute sepsis COMPARISON: None TECHNIQUE: PA view of the chest FINDINGS: Cardiomediastinal and hilar silhouettes are within normal limits. No pneumothorax, pleural effusion or airspace consolidation. The bones appear grossly intact. Likely benign indeterminate 1.4 cm sclerotic focus projects over the right glenohumeral joint. IMPRESSION: No acute process. ACT 112: Negative or not required by law. The above report was generated using voice recognition software. It may contain grammatical, syntax or spelling errors. Electronically signed by: Varun Alvarez M.D. 06/27/2023 2:[address] 06/27/23 12:[address] WITHOUT CONTRAST CLINICAL HISTORY: Fall, face/head injuries COMPARISON STUDY: None. TECHNIQUE: A maxillofacial CT was performed without IV contrast. Coronal and sagittal reformats were viewed. Automated exposure control was utilized for the study. A dose lowering technique was utilized adhering to the principles of ALARA. FINDINGS: There are probable acute nondisplaced bilateral nasal bone fractures. There is nasal soft tissue swelling. Globes are intact. There is no retrobulbar hematoma. No additional facial fractures are present. Alignment of the temporomandibular joints is anatomic. There is no fracture within the skull base or visualized upper cervical spine IMPRESSION: Probable acute nondisplaced bilateral nasal bone fractures. No additional facial fractures. ACT 112: Negative or not required by law. Electronically signed by: Vu Ruiz M.D. 06/27/2023 1:[address] 06/27/23 12:[address] DOSE: 841.82 mGy.cm HISTORY: Fall, face/head injuries TECHNIQUE: Multiaxial CT images of the head were performed without the use of intravenous contrast. Automated exposure control was utilized for this study. A dose lowering technique was utilized adhering to the principles of ALARA. Comparison: None. Findings: The paranasal sinuses and mastoid air cells are clear. The calvarium and skull base are intact. The ventricles and sulci are within normal limits. There is no mass, hematoma, midline shift, or acute infarct. Impression: No acute intracranial abnormality. ACT 112: Negative or not required by law. Electronically signed by: Tha Paz M.D. 06/27/2023 1:[address] 06/27/23 14:49 CT OF THE CERVICAL SPINE WITHOUT CONTRAST CLINICAL HISTORY: Fall. COMPARISON STUDY: No previous studies for comparison. TECHNIQUE: Helical axial images of the cervical spine were obtained without IV contrast. Sagittal and coronal reconstructions were viewed. Automated exposure control was utilized for the study. A dose lowering technique was utilized adhering to the principles of ALARA. FINDINGS: There is straightening of the cervical lordosis. Vertebral body heights are maintained. No acute cervical spine fracture or subluxation is present. There is no prevertebral edema. Facet joints are intact. Moderate disc space narrowing and osteophytosis at C5-C6 is present. There is mild multilevel facet arthrosis. IMPRESSION: No acute cervical spine fracture or subluxation. ACT 112: Negative or not required by law. Electronically signed by: Vu uRiz M.D. 06/27/2023 3:47 PM ECG Data Attestation: I personally reviewed and interpreted this ECG as follows: Rate (beats per minute): 102 Rhythm: + sinus tachycardia ECG Intervals/blocks: + Normal QRS, + Normal MD and + Normal QT-c ECG ST segments: + Normal ST segments [facility] Narrative 1424: The patient was evaluated in room B8. A complete history and physical exam was performed Cardiac monitoring: An order was placed for continuous cardiac monitoring. The monitor shows a rate of 100 with sinus rhythm interpreted by 1600: Vital signs stable. Lactic acid 2.5. Magnesium 1.2. IV fluids began in the emergency department 30 cc/kg bolus. [place] that the patient's lactic acidemia secondary to his COVID infection. Procalcitonin is negative not thought to be bacterial. Antibiotics held at this time. Imaging shows nasal bone fracture otherwise negative. Magnesium was 1.2 repletion started in the emergency department. Patient be admitted for syncope hypomagnesemia and lactic acidemia. [facility]: Repeat lactic acid status post 2 L normal saline bolus 1.4. Impression & Plan Syncope, Hypomagnesemia, CHI (closed head injury), Fracture, nasal Discharge Plan Visit Data Chief Complaint: Fall Stated Complaint: FALL,FACIAL LAC,LAC ON ARMS/HANDS ED Provider: Reji Vallejo Discharge Problem: Syncope, Hypomagnesemia, CHI (closed head injury), Fracture, nasal Patient Disposition: Admitted As Inpatient Discharge Instructions Interventions: ED Discharge Assessment Last Done: 06/27/23 18:30
[2023-06-27] MEDS: INSULIN ASPART PER UNIT CHARGE SC SCH (20:35)
[2023-06-27] MEDS: risperiDONE 1 MG TABLET PO SCH (20:39)
[2023-06-27] MEDS: BENZTROPINE MESYLATE 0.5 MG TAB PO SCH (20:39)
[2023-06-27] MEDS: ARIPiprazole 15 MG TAB PO SCH (20:39)
[2023-06-27] MEDS: ENOXAPARIN INJ 40 MG/0.4 ML SYR SQ SCH (20:40)
[2023-06-27] MEDS: clonazePAM 0.5 MG TAB PO SCH (20:40)
[2023-06-28 06:56] LABS: Basophils # (auto) 0.01 K/uL (0.00-0.20); Basophils % (auto) 0.2 %; Eosinophils # (auto) 0.01 K/uL (0.00-0.50); Eosinophils % (auto) 0.2 %; Hematocrit (blood only) 36.7 % (42.0-52.0); Hemoglobin 12.3 g/dl (14.0-18.0); Immature Granulocytes # (auto) 0.02 K/uL (0.01-0.20); Immature Granulocytes % (auto) 0.5 %; Lymphocytes # (auto) 1.37 K/uL (1.20-3.40); Lymphocytes % (auto) 32.7 %; Mean Corpuscular Hemoglobin 27.6 pg (25.0-34.0); Mean Corpuscular Hgb Conc 33.5 g/dL (32.0-36.0); Mean Corpuscular Volume 82.5 fL (80.0-100.0); Mean Platelet Volume 10.4 fL (9.4-12.4); Monocytes # (auto) 0.46 K/uL (0.11-0.59); Neutrophils # (auto) 2.32 K/uL (1.40-6.50); Neutrophils % (auto) 55.4 %; Platelet Count 138 K/uL (130-400); RDW Coefficient of Variation 12.7 % (11.5-14.5); RDW Standard Deviation 38.5 fL (36.4-46.3); Red Blood Count 4.45 M/uL (4.70-6.10); White Blood Count 4.19 K/ul (4.8-10.8)
[2023-06-28 07:09] LABS: BUN Creatinine Ratio 17.5 (10-20); Calcium 7.4 mg/dl (8.6-10.3); Creatinine Clr Calc Pharmacy 86.6 ml/min; Est GFR (African American) 108.7 ml/min; Est GFR (Non-African American) 93.7 ml/min; Potassium 3.6 mmol/L (3.5-5.1)
[2023-06-28 07:14] LABS: Troponin I High Sensitivity 39.6 pg/ml (0-20)
[2023-06-28] MEDS: CHOLECALCIFEROL 25 MCG (1000 UNITS) TAB PO SCH (08:38)
[2023-06-28] MEDS: PANTOprazole 40 MG TAB PO SCH (08:38)
[2023-06-28] MEDS: CYANOCOBALAMIN (B-12) 500 MCG TABLET PO SCH (08:38)
[2023-06-28] MEDS: LANTUS PER UNIT CHARGE SQ SCH (10:17)
--- NOTE | 2023-06-28 11:14 | Hospitalist Progress Note ---
Date of Service June 28, 2023 Assessment & Plan Admission and Anticipated Discharge Date Admission Date: June 27, 2023 Subjective Acute events overnight- none. Pt examined at bedside. Feels well, denies acute complaints. Review of Systems Review of Systems: Per HPI/Subjective Physical Exam Physical Exam: General: no acute distress; pleasant affect; non-toxic appearing; well- nourished; cooperative; SpO2 95% on RA HEENT: Erythema and swelling over the bridge of the nose and right cheek with superficial abrasions; nares are with dried blood, but patent; no scleral icterus; moist mucus membrane Neck: supple; no lymphadenopathy; trachea midline Skin: warm, dry without signs of tenting; no cyanosis; no rashes, bruising, lesions, or erythema noted CV: chest wall NTP; RRR; S1/S2 normal; no murmurs/rubs/gallops Lungs: no acute respiratory distress; symmetrical chest wall expansion; clear breath sounds across all lung hernández w/o adventitious sounds; no wheezing Results & Data Results & Data Vital Signs (Past 12 Hours) Vital Signs Temp Pulse Pulse Resp BP Pulse Ox O2 Del Method 06/28/23 10:19 70 06/28/23 07:20 37.2 C 75 18 125/69 95 Room Air 06/28/23 03:37 36.6 C 76 18 136/83 93 Room Air Resident Activity Tracking Resident Involvement: Resident Care Provided Care Provided: Adult Hospital Medicine
--- NOTE | 2023-06-28 11:22 | Discharge Summary ---
Date of Service June 28, 2023 Admission HPI Per Admitting Provider Ruddy is a 63-year-old male with PMH of T2DM, schizophrenia, and acid reflux. He presented for lightheadedness and fall on 06/26. Patient reports he developed fever and chills yesterday when walking home, and then felt lightheaded and "woozy" when he woke up this morning. He never took his temperature, so he is unsure how high the fever was. Then, when running to cross [facility], he fell and went headfirst into the pavement. He is unsure what caused the fall, but denies tripping or LOC. After falling, he quickly tried to get back up to get out of the way of a car, but fell again. During the 2 falls he struck his face. Not currently on blood thinners. Patient does note that, given his recent illness, he may have mixed up some of his medications for schizophrenia. He is unsure if he took 2 Risperdal's the evening of 06/25 vs. 1 Risperdal and 1 clonazepam. He did take clonazepam the morning of 06/26. Patient manages his own medications; and denies any recent change in medications. He was recently taken off insulin for his diabetes. No sick contacts. He has not had COVID previously. He does note he is up-to-date on his COVID shots (has had 1 vaccine and 1 booster). No recent changes in diet. He reports no new or recent symptoms related to his schizophrenia. Patient reports he walks daily, which helps with his schizophrenia. He denies any recent alcohol, tobacco use, or smoking. Patient is febrile at 39.5 C at time of admission; SpO2 95% on RA. ED course: NSS 1000 mL IV Magnesium sulfate 1 g IV DTaP ROS: Patient endorses fever, chills, lightheadedness, and dry cough (that started today). Patient denies night-sweats, body aches, dizziness, changes of vision, chest pain, chest palpitations, SOB, pleuritic CP, abdominal pain, N/V/D, change in urinary/bowel habits, or numbness/tingling in arms or legs. Admission Exam Per Admitting Provider General: no acute distress; pleasant affect; non-toxic appearing; well- nourished; cooperative; SpO2 95% on RA HEENT: Erythema and swelling over the bridge of the nose and right cheek with superficial abrasions; nares are with dried blood, but patent; no scleral icterus; PERRLA w/ EOMs intact; moist mucus membrane; vision and hearing grossly intact Neck: supple; no lymphadenopathy; trachea midline Skin: warm, dry without signs of tenting; no cyanosis; no rashes, bruising, lesions, or erythema noted CV: chest wall NTP; RRR; S1/S2 normal; no murmurs/rubs/gallops; pulses intact and symmetric at radial, DP, and PT Lungs: no acute respiratory distress; symmetrical chest wall expansion; clear breath sounds across all lung hernández w/o adventitious sounds; no wheezing ABD: Soft, NTP; BS present; no rebound/guarding; no distention MSK: no tics or fasciculations; no edema noted in the LEs b/l, nonerythematous Neuro: A&Ox3; normal mood and affect; perseveration; repetition of thoughts and ideas; fluent speech; no focal deficits; sensation grossly intact in the LEs b/l Principal Diagnosis Fall, COVID Discharge Exam General: no acute distress; pleasant affect; non-toxic appearing; well- nourished; cooperative; SpO2 95% on RA HEENT: Erythema and swelling over the bridge of the nose and right cheek with superficial abrasions; nares are with dried blood, but patent; no scleral icterus; moist mucus membrane Neck: supple; no lymphadenopathy; trachea midline Skin: warm, dry without signs of tenting; no cyanosis; no rashes, bruising, lesions, or erythema noted CV: chest wall NTP; RRR; S1/S2 normal; no murmurs/rubs/gallops Lungs: no acute respiratory distress; symmetrical chest wall expansion; clear breath sounds across all lung hernández w/o adventitious sounds; no wheezing Neuro: A&Ox3; normal mood and affect; fluent speech; no focal deficits Discharge Data Allergies Allergy/AdvReac Type Severity Reaction Status Date / Time Neosporin OINT Allergy Mild Rash Uncoded 06/13/23 10:52 Consultations 06/27/23 16:03 ED Decision to Admit Stat Ordered Studies 06/27/23 12:01 CT facial bones wo con Stat CT head/brain wo con Stat 06/27/23 14:49 CT cervical spine wo con Stat Hospital Course (1) Elevated troponin: (1) COVID: Plan: Patient developed a fever/chills evening 06/25, then woke up feeling lightheaded on 06/26 COVID-positive on ED arrival Mildly leukopenic at 4.18 on admission Febrile at 39.5 C in the ED; non-hypoxic. No further fevers since admission Improving with supportive care, will not need any further medications on discharge (2) Fall: Plan: Patient was running across the street on 06/26 and fell forward, striking his face He is unsure what caused his fall, but denies tripping; he reports he was feeling lightheaded due to his illness, and may have mixed up his antipsychotic medications the night prior Face CT revealed a probable acute nondisplaced bilateral nasal bone fracture Head/cervical spine CTs revealed no acute fractures or subluxation May have been due to imbalance from dehydration/recent COVID infection (3) Hypomagnesemia: Plan: Hypomagnesemia 1.2 on arrival Resolved with repletion (4) Type 2 diabetes mellitus: Plan: Last A1c at 6.1% on 05/29/2023 Patient recently got off insulin and May 2023 Glucose 153 on admission (5) Elevated troponin: Plan: Elevated troponin 16-->31 on arrival Clinically, patient denied chest pain, pleuritic CP, or SOB TTE pending at time of discharge First EKG taken with suspected arm lead reversal- showed inferolateral T wave inversions; repeat EKG showed resolution (2) CHI (closed head injury): (3) COVID: Total Time Total Time Spent Total Time Spent (In Minutes): <30 Discharge Plan Discharge Items Patient Disposition: Home - Self-Care Reason For Visit: COVID,LIGHTHEADEDNESS,FALL Discharge Diagnosis: COVID, fall Activity: Resume your previous activity Non-emergency contact: Primary Care Provider Call non-emergency contact if: your symptoms worsen Follow-up/Referrals: Franco Estevez DO [Primary Care Provider] - 07/01/23 11:30 am Diet: Carb Consistent or DM2 Addtl Attending Provider Instructions: You were admitted to the hospital for a fall with weakness and COVID. Your COVID infection is mild and does not need any further treatment. Your nasal fracture from the fall will heal on its own with time. the main treatment for the abrasions/cuts is really just keeping them clean with soap and water. you can use a thin layer of bacitracin (over the counter) but i wouldn't do too much as far as topical treatments since the cuts themselves look clean and look like they're going to heal on their own. Please stay well-hydrated and do not overexert yourself over the next few weeks. stay well hydrated - as we discussed part of getting weak when you have an infection is that the physical stress and the fevers make you lose water almost like going for a run (or a walk on a hot day) -as a reasonable rule - until you're all better from the covid, try to drink 70- 80 ounces of fluid a day (keep track, when people "guesstimate" they're usually way off) -once you're better, still track your fluid intake - as we discussed it's fairly common as we get older (and yes, more common in your 80s, but it does happen to people in their 60s sometimes) the hormones that make us feel thirsty start to wear off - so staying hydrated is more "an exercise in accounting" than whether or not you're thirsty -a reasonable rule on a normal day would be at least 60 ounces of fluid a day on a regular day PLUS another 5 ounces of fluid per hour of exercise (so if you go for a 2 hour walk, 60 ounces plus 5 ounces an hour for 2 hours = 70 ounces on the day), and if it's really hot out/you're sweating a lot, then maybe increase it to 10 ounces per hour of exercise. A discharge summary will be sent to your primary care physician to ensure continuity of care. Please bring this discharge summary with you to your next office appointment so that your provider can review it at that time. Follow-up appointments: - Make a follow-up appointment with your PCP within the next week. It is very important that you follow up with them shortly after discharge from the hospital. Medications: Your medication list has been reviewed and reconciled upon discharge to ensure accuracy and continuity of care. An updated list of all your medications is included with your hospital discharge paperwork. Please review this list closely, and make note of any changes. Take your medications as instructed; do not skip a dose of your medicines. Make sure all of your doctors know every medicine you are taking (including faqr-ecn-ghfhttf medi cines, vitamins, and supplements). Call your primary care provider before taking any new medicines (including hvxy-fuo-meqssam medicines, vitamins, and supplements), because some of these may interact with your current medications, or may make your symptoms worse. Tell your primary care provider if you cannot afford your medications. CALL 911 OR GO TO THE EMERGENCY DEPARTMENT if you experience any of the following: - Sudden, severe abdominal pain or nausea/vomiting - Severe chest pain, or chest pain that radiates (moves) to your jaw or arm - Sudden, severe shortness of breath or difficulty breathing Thank you for allowing us to participate in your care Pending Studies at Discharge: Yes (TTE) Stand-Alone Forms: My [facility] Medications and DC Order Prescriptions: Continued (DME) insulin syringe-needle U-100 [BD Veo Insulin Syringe UF] 1/2 mL 31 gauge x 15/64" syringe See Dose Instructions .ROUTE .MEDSUPPLY Qty: 200 3RF Dose Instruction: As directed Rx Instructions: Use to inject 2 times daily metformin 500 mg tablet 1,000 mg PO BID 90 Days Qty: 360 3RF (DME) lancets [[employer]Touch Delica Plus Lancet] 30 gauge misc See Rx Instructions .Route Qty: 300 3RF Rx Instructions: Test blood sugar three times daily omeprazole 20 mg capsule,delayed release(DR/EC) 20 mg PO DAILY Qty: 90 3RF (DME) OneTouch Verio test strips Strip See Dose Instructions .ROUTE .MEDSUPPLY Qty: 200 3RF Dose Instruction: As directed Rx Instructions: Test 2 times daily risperidone 3 mg tablet 3 mg PO BID Qty: 180 3RF benztropine 0.5 mg tablet 0.5 mg PO BID Qty: 180 3RF clonazepam 0.5 mg tablet 0.5 mg PO BID Qty: 60 0RF cyanocobalamin (vitamin B-12) 500 mcg tablet 500 mcg PO DAILY Qty: 90 cholecalciferol (vitamin D3) 2,000 unit capsule 2,000 units PO DAILY Qty: 90 (DME) blood-glucose meter [OneTouch Verio Flex Start] Kit See Rx Instructions .ROUTE .MEDSUPPLY Qty: 1 0RF Rx Instructions: As directed Boostrix Tdap 2.5-8-5 Lf-mcg-Lf/0.5mL syringe 0.5 ml IM ONCE Qty: 0.5 0RF Humalog Mix 75-25(U-100)Insuln 100 unit/mL (75-25) suspension 0 unit subcut UD Hold Instructions: Home Medication placed on hold at Doctor's office Rx Instructions: on hold. original directions: 0.6 units subcutaneously before supper; Novolin N NPH U-100 Insulin 100 unit/mL suspension 0 unit subcut UD Hold Instructions: Home Medication placed on hold at Doctor's office Rx Instructions: on hold. original directions: 6 units subcutaneously before Breakfast; aripiprazole 15 mg tablet 15 mg PO HS Discharge Orders: Discharge Order (Routine); Ordered 06/28/23 Ordered By: Nory Loving Admission Data Admit Date/Time: 06/27/23 17:57 Attending Provider: Arturo James Admit Provider: Mario Saldivar Primary Care Provider: Franco Estevez Other Providers: Mario Saldivar; Parish Gant; Giancarlo Zelaya; Severo Mcdaniel; Cam Guzman; Mehdi Franco; Rk Nassar Jr; Joseph Espinosa; Elvia Dunn; Martha Bojorquez; David Dean; David La; Ignacio Nowak; Debora Caal; Shaq Sarmiento; Lalitha Drummond; Butch Howard; Channing Rodriguez; Dion Brian; Bandar Ford Supervising Physician Co-Signing Physician Notes I personally examined the patient and verified all palomares points of history and exam, discussed case, and agree with decision making with Dr Loving feeling better. Walking around much more steady. Not quite back to baseline but definitely feels well enough to get home. His sister is present and agrees. No chest pain no shortness of breath no new dyspnea on exertionactually he walks as exercise more or less daily and often 5 miles a day. Vitals noted, in general he is awake and alert pleasant no distress. He does have abrasions on his face, fortunately his nose grossly appears aligned. Breathing unlabored no accessory muscle use good effort. Skin shows no rashes no pallor or icterus. Fall/nasal fracture/abrasionsseems to have been weakness related to COVID, dehydration, and possibly accidentally taking an extra dose of his respite all. He appears to be improving nicely and is safe/stable for home. Elevated troponin fortunately does not appear to be anginal. Initial EKG was lead reversal, echo reassuring, no anginal symptoms, troponin minimal elevation is likely related to COVID. Safe/stable for home. Otherwise as above
[2023-06-28] MEDS ORDERED: REMDESIVIR 100 MG in SODIUM CHLORIDE 0.9% 230 ML IV SCH (12:00)
[2023-06-28] MEDS: ACETAMINOPHEN 325 MG TAB PO PRN (12:26)
--- NOTE | 2023-06-28 12:38 | Electrocardiogram Report ---
Test Reason : Blood Pressure : / mmHG Vent. Rate : 064 BPM Atrial Rate : 064 BPM P-R Int : 162 ms QRS Dur : 092 ms QT Int : 390 ms P-R-T Axes : 060 066 031 degrees QTc Int : 402 ms Normal sinus rhythm Normal ECG When compared with ECG of 27-JUN-2023 12:07, Vent. rate has decreased BY 38 BPM Left posterior fascicular block is no longer Present Non-specific change in ST segment in Lateral leads T wave inversion no longer evident in Inferior leads T wave inversion no longer evident in Lateral leads Confirmed by Severo Mcdaniel ([id number]) on 06/28/2023 12:38:13 PM Referred By: REFERRED SELF Confirmed By:Severo Mcdaniel
--- NOTE | 2023-06-28 14:23 | XCELERA ---
[id number]
--- NOTE | 2023-06-28 16:23 | Billing Data ---
Date of Service June 28, 2023 Coding Level of Care Code 24948 IN/OBS DISCH 30 MIN/LESS
== END 2023-06-28 12:58 | disposition home or self-care (01) ==
LOC: ED 11:36 → EDINP 11:36 → SUATTDRO 17:57 → 2N 18:30